=== PATIENT | male | born 1955 | race Caucasian/White ===

== ENCOUNTER 2021-06-09 14:21 | Inpatient (IN) | payer MEDICARE, OTHER ==
[~2021-06-09] VITALS: Ht 175.3 cm; Wt 82.9 kg
[2021-06-09 15:54] LABS: Basophils # (auto) 0 10 ^3/uL (0-0.2); Basophils % (auto) 0.3 % (0.0-2.0); Eosinophils # (auto) 0 10 ^3/uL (0-0.8); Eosinophils % (auto) 0.1 % (0.0-7.0); Hematocrit 24.5 % (41.0-53.0); Hemoglobin 8.3 g/dL (13.5-17.5); Lymphocytes # (auto) 0.6 10 ^3/uL (0.4-5.4); Lymphocytes % (auto) 6.4 % (10.0-50.0); Mean Corpuscular Hemoglobin 29.8 pg (28.0-32.0); Mean Corpuscular Hgb Conc. 33.8 g/dL (32.0-36.0); Mean Corpuscular Volume 88.2 fL (80.0-100.0); Monocytes # (auto) 0.5 10 ^3/uL (0-1.3); Monocytes % (auto) 5.6 % (0.0-12.0); Neutrophils # (auto) 7.9 10 ^3/uL (1.6-8.6); Neutrophils % (auto) 87.6 % (37.0-80.0); Nucleated Red Blood Cells % 0.1 %; Red Blood Cells 2.77 10^6/uL (4.5-5.90); Red Cell Distribution Width 16.4 % (11.8-14.3)
[2021-06-09 16:07] LABS: INR 1.31 (0.9-1.15); Partial Thromboplastin Time 32.7 sec (23.6-33.0)
[2021-06-09 16:27] LABS: Albumin 2.6 g/dL (3.4-5.0); Calcium 8.1 mg/dL (8.5-10.1); Magnesium 2.9 mg/dL (1.6-2.6); Potassium 5.4 mmol/L (3.5-5.1)
[2021-06-09 16:36] LABS: BUN/Creatinine Ratio 22.4; Bilirubin, Total 1.3 mg/dL (0.2-1.0); Total Protein 6.3 g/dL (6.4-8.2)
[2021-06-09] MEDS ORDERED: CALCIUM GLUC 1,000mg/50ml-NS 50 ML IV ONE (20:30)
[2021-06-09] MEDS ORDERED: SODIUM BICARBONATE 8.4 % INJ 50ML VIAL IV ONE (20:30)
[2021-06-09] MEDS ORDERED: DEXTROSE (50%) 50ML SYRG IV PRN (23:00)
[2021-06-09] MEDS ORDERED: DOCUSATE SOD 100 MG CAP PO PRN (23:00)
[2021-06-09] MEDS ORDERED: ONDANSETRON HCL 4 MG/2 ML VIAL IV PRN (23:00)
[2021-06-09] MEDS ORDERED: HYDROcodone-ACET 5/325MG TAB PO PRN (23:00)
[2021-06-09] MEDS ORDERED: MORPHINE SULFATE 4 MG/ML SYR/VIAL IV PRN (23:00)
[2021-06-09] MEDS ORDERED: MORPHINE SULFATE INJECTION 2 MG/ML SYRG IV PRN (23:45)
[2021-06-10 03:56] VITALS: BP 147/74
[2021-06-10] MEDS: ACETAMINOPHEN 325 MG TAB PO PRN ×2 (04:59→15:09)
[2021-06-10 05:48] VITALS: BP 147/74
[2021-06-10] MEDS: NITROGLYCERIN 0.4 MG SL TAB SL PRN ×4 (06:30→22:24)
[2021-06-10] MEDS: SODIUM CHLOR 0.9% PF (SALINE LOCK) 10ML VIAL/SYR IV SCH ×3 (07:07→23:09)
[2021-06-10] MEDS: InsuLIN REG 1unit/0.01ml Soln (100units/ml) SC SCH ×4 (07:08→23:07)
[2021-06-10] MEDS: ACCU-CHEK COMFORT CURVE STRIP VI SCH ×4 (07:09→23:10)
[2021-06-10 08:04] LABS: Basophils # (auto) 0 10 ^3/uL (0-0.2); Basophils % (auto) 0.6 % (0.0-2.0); Eosinophils # (auto) 0 10 ^3/uL (0-0.8); Eosinophils % (auto) 0.5 % (0.0-7.0); Hematocrit 24.8 % (41.0-53.0); Hemoglobin 8.3 g/dL (13.5-17.5); Lymphocytes % (auto) 12.6 % (10.0-50.0); Mean Corpuscular Hemoglobin 29.7 pg (28.0-32.0); Mean Corpuscular Hgb Conc. 33.7 g/dL (32.0-36.0); Mean Corpuscular Volume 88.1 fL (80.0-100.0); Monocytes # (auto) 0.6 10 ^3/uL (0-1.3); Monocytes % (auto) 7.5 % (0.0-12.0); Neutrophils # (auto) 6.2 10 ^3/uL (1.6-8.6); Neutrophils % (auto) 78.8 % (37.0-80.0); Red Blood Cells 2.81 10^6/uL (4.5-5.90); Red Cell Distribution Width 16.3 % (11.8-14.3); White Blood Cell 7.8 10^3/uL (4.4-10.8)
[2021-06-10 08:20] LABS: Albumin 2.5 g/dL (3.4-5.0); Calcium 8.3 mg/dL (8.5-10.1); Potassium 4.6 mmol/L (3.5-5.1)
[2021-06-10 08:40] LABS: Bilirubin, Total 0.6 mg/dL (0.2-1.0); Total Protein 6.3 g/dL (6.4-8.2)
[2021-06-10] MEDS: FAMOTIDINE (10MG/ML) 2ML VL IV SCH ×2 (08:54→23:07)
[2021-06-10] MEDS: ASPirin 81 mg TAB PO SCH (08:55)
[2021-06-10] MEDS: HEPARIN SODIUM (PORCINE) 5000 UNITS/ML 1ML VIAL SC SCH ×2 (08:55→23:09)
[2021-06-10 09:04] VITALS: BP 143/67
[2021-06-10] MEDS ORDERED: FUROSEMIDE 20 MG/2 ML VIAL IV SCH (10:00)
[2021-06-10] MEDS ORDERED: cefTRIAXone 1GM/50ML D5W 50 ML IV ONE (11:15)
[2021-06-10 11:28] LABS: Urine Bacteria NONE SEEN /hpf (None Seen); Urine Blood Negative /uL (Negative); Urine Specific Gravity 1.009 (1.001-1.035); Urine WBC <1 /hpf (0 - 3)
[2021-06-10] MEDS ORDERED: AZITHROMYCIN 500MG/ 250ML 250 ML IV ONE (12:30)
[2021-06-10 12:32] VITALS: BP 147/69
[2021-06-10 17:18] VITALS: BP 133/74
[2021-06-10 21:30] VITALS: BP 130/56
[2021-06-10] MEDS: CARVEDILOL 3.125 MG TAB PO SCH (22:00)
[2021-06-11] MEDS: ALBUTEROL SULF 2.5 MG/0.5ML(0.5%) NEB SOLN NEB PRN ×2 (04:49→14:04)
[2021-06-11 05:00] VITALS: BP 146/83
[2021-06-11] MEDS: SODIUM CHLOR 0.9% PF (SALINE LOCK) 10ML VIAL/SYR IV SCH ×3 (06:00→22:19)
[2021-06-11] MEDS: ACCU-CHEK COMFORT CURVE STRIP VI SCH ×4 (06:47→22:41)
[2021-06-11] MEDS: InsuLIN REG 1unit/0.01ml Soln (100units/ml) SC SCH ×4 (06:49→22:29)
[2021-06-11 06:51] LABS: Potassium 4.3 mmol/L (3.5-5.1)
[2021-06-11 06:56] LABS: BUN/Creatinine Ratio 22.8; Calcium 8.3 mg/dL (8.5-10.1)
[2021-06-11 07:19] LABS: Albumin 2.7 g/dL (3.4-5.0); Bilirubin, Direct 0.4 mg/dL (0-0.2); Total Protein 6.1 g/dL (6.4-8.2)
[2021-06-11 09:00] VITALS: BP 158/74
[2021-06-11] MEDS: cefTRIAXone 1GM/50ML D5W 50 ML IV SCH (10:16)
[2021-06-11] MEDS: FUROSEMIDE 40 MG/4 ML VIAL IV SCH (10:17)
[2021-06-11] MEDS: FAMOTIDINE (10MG/ML) 2ML VL IV SCH ×2 (10:17→22:18)
[2021-06-11] MEDS: AZITHROMYCIN 500MG/ 250ML 250 ML IV SCH (10:17)
[2021-06-11] MEDS: ASPirin 81 mg TAB PO SCH (10:18)
[2021-06-11] MEDS: CARVEDILOL 3.125 MG TAB PO SCH ×2 (10:18→22:20)
[2021-06-11] MEDS: HEPARIN SODIUM (PORCINE) 5000 UNITS/ML 1ML VIAL SC SCH ×2 (10:19→22:40)
[2021-06-11 13:00] VITALS: BP 145/74
[2021-06-11 17:00] VITALS: BP 136/67
[2021-06-11 22:00] VITALS: BP 162/80
[2021-06-12 05:00] VITALS: BP 159/88
[2021-06-12 05:34] LABS: Albumin 3.1 g/dL (3.4-5.0); BUN/Creatinine Ratio 15.1; Bilirubin, Direct 0.5 mg/dL (0-0.2); Calcium 9.3 mg/dL (8.5-10.1); Potassium 4.1 mmol/L (3.5-5.1)
[2021-06-12 05:42] LABS: Bilirubin, Total 1.2 mg/dL (0.2-1.0); Total Protein 7.1 g/dL (6.4-8.2)
[2021-06-12] MEDS: SODIUM CHLOR 0.9% PF (SALINE LOCK) 10ML VIAL/SYR IV SCH ×3 (06:07→22:21)
[2021-06-12] MEDS: InsuLIN REG 1unit/0.01ml Soln (100units/ml) SC SCH ×4 (06:37→22:31)
[2021-06-12 07:10] LABS: Albumin 2.7 g/dL (3.4-5.0); Bilirubin, Direct 0.4 mg/dL (0-0.2); Calcium 8.5 mg/dL (8.5-10.1); Potassium 4.3 mmol/L (3.5-5.1)
[2021-06-12] MEDS: ACCU-CHEK COMFORT CURVE STRIP VI SCH ×4 (07:15→22:30)
[2021-06-12 07:18] LABS: BUN/Creatinine Ratio 17.6; Bilirubin, Total 1.1 mg/dL (0.2-1.0); Total Protein 6.7 g/dL (6.4-8.2)
[2021-06-12 09:00] VITALS: BP 142/67
[2021-06-12] MEDS: ASPirin 81 mg TAB PO SCH (09:06)
[2021-06-12] MEDS: AZITHROMYCIN 500MG/ 250ML 250 ML IV SCH (09:07)
[2021-06-12] MEDS: FAMOTIDINE (10MG/ML) 2ML VL IV SCH (09:07)
[2021-06-12] MEDS: CARVEDILOL 3.125 MG TAB PO SCH ×2 (09:07→22:23)
[2021-06-12] MEDS: cefTRIAXone 1GM/50ML D5W 50 ML IV SCH (09:08)
[2021-06-12] MEDS: FUROSEMIDE 40 MG/4 ML VIAL IV SCH (09:08)
[2021-06-12] MEDS: HEPARIN SODIUM (PORCINE) 5000 UNITS/ML 1ML VIAL SC SCH ×2 (09:16→22:27)
[2021-06-12 13:00] VITALS: BP 120/51
[2021-06-12 17:11] VITALS: BP 144/66
[2021-06-12 22:00] VITALS: BP 131/74
[2021-06-13 05:00] VITALS: BP 150/80
[2021-06-13] MEDS: SODIUM CHLOR 0.9% PF (SALINE LOCK) 10ML VIAL/SYR IV SCH ×3 (05:54→22:39)
[2021-06-13] MEDS: FUROSEMIDE 40 MG/4 ML VIAL IV SCH (05:55)
[2021-06-13] MEDS: InsuLIN REG 1unit/0.01ml Soln (100units/ml) SC SCH ×4 (06:58→22:41)
[2021-06-13 07:07] LABS: Albumin 2.8 g/dL (3.4-5.0); Bilirubin, Direct 0.5 mg/dL (0-0.2)
[2021-06-13 07:15] LABS: Bilirubin, Total 1.3 mg/dL (0.2-1.0); Total Protein 6.4 g/dL (6.4-8.2)
[2021-06-13] MEDS: ACCU-CHEK COMFORT CURVE STRIP VI SCH ×4 (07:29→22:43)
[2021-06-13] MEDS: AZITHROMYCIN 500MG/ 250ML 250 ML IV SCH (08:20)
[2021-06-13 08:35] VITALS: BP 155/74
[2021-06-13] MEDS: HEPARIN SODIUM (PORCINE) 5000 UNITS/ML 1ML VIAL SC SCH ×2 (08:52→22:41)
[2021-06-13] MEDS: CARVEDILOL 3.125 MG TAB PO SCH ×2 (09:10→22:38)
[2021-06-13] MEDS: ASPirin 81 mg TAB PO SCH (09:10)
[2021-06-13] MEDS: PANTOPRAZOLE 40 MG TAB PO SCH (09:10)
[2021-06-13] MEDS: cefTRIAXone 1GM/50ML D5W 50 ML IV SCH (09:11)
[2021-06-13 10:01] LABS: INR 1.17 (0.9-1.15); Partial Thromboplastin Time 28.2 sec (23.6-33.0)
[2021-06-13 13:00] VITALS: BP 153/70
[2021-06-13 16:46] VITALS: BP 124/51
[2021-06-13 21:45] VITALS: BP 164/80
[2021-06-14 05:00] VITALS: BP 159/78
[2021-06-14 06:00] LABS: Albumin 2.8 g/dL (3.4-5.0)
[2021-06-14 06:04] LABS: Bilirubin, Direct 0.4 mg/dL (0-0.2); Total Protein 6.4 g/dL (6.4-8.2)
[2021-06-14] MEDS: InsuLIN REG 1unit/0.01ml Soln (100units/ml) SC SCH ×4 (07:17→21:42)
[2021-06-14] MEDS: ACCU-CHEK COMFORT CURVE STRIP VI SCH ×4 (07:18→21:42)
[2021-06-14] MEDS: SODIUM CHLOR 0.9% PF (SALINE LOCK) 10ML VIAL/SYR IV SCH ×3 (07:18→21:27)
[2021-06-14] MEDS ORDERED: NITROGLYCERIN 5MG/ML 10ML VIAL IV ONE (07:59)
[2021-06-14 09:00] VITALS: BP 143/80
[2021-06-14] MEDS: cefTRIAXone 1GM/50ML D5W 50 ML IV SCH (09:00)
[2021-06-14] MEDS: FUROSEMIDE 40 MG/4 ML VIAL IV SCH (09:33)
[2021-06-14] MEDS: ASPirin 81 mg TAB PO SCH (09:34)
[2021-06-14] MEDS: PANTOPRAZOLE 40 MG TAB PO SCH (09:34)
[2021-06-14] MEDS: HEPARIN SODIUM (PORCINE) 5000 UNITS/ML 1ML VIAL SC SCH (09:35)
[2021-06-14] MEDS: CARVEDILOL 3.125 MG TAB PO SCH ×2 (09:35→21:27)
[2021-06-14] MEDS: AZITHROMYCIN 500MG/ 250ML 250 ML IV SCH (09:35)
[2021-06-14 13:03] VITALS: BP 152/66
[2021-06-14] MEDS ORDERED: IODIXANOL 320MG/ML 100ML BTL IV ONE (14:09)
[2021-06-14] MEDS ORDERED: LIDOCAINE 2%HCL (LOCAL ANESTH.) INJ 20ML MDV ONE (14:09)
[2021-06-14] MEDS ORDERED: SODIUM CHL 0.9% 0 ML ONE (14:10)
[2021-06-14] MEDS ORDERED: ANGIOMAX 250 MG VIAL IV ONE (14:10)
[2021-06-14] MEDS ORDERED: fentaNYL CITRATE 100 MCG/2 ML VL ONE (14:10)
[2021-06-14] MEDS ORDERED: MIDAZOLAM HCL 2MG/2ML 2ml VIAL (1mg/ml) ONE (14:10)
[2021-06-14] MEDS ORDERED: IOHEXOL 350 MG/ML 100ML IJ ONE (14:52)
[2021-06-14 17:00] VITALS: BP 162/81
[2021-06-14 20:00] VITALS: BP 114/66
[2021-06-14 22:00] VITALS: BP 114/66
[2021-06-15 05:00] VITALS: BP 150/74
[2021-06-15] MEDS: SODIUM CHLOR 0.9% PF (SALINE LOCK) 10ML VIAL/SYR IV SCH ×2 (05:57→11:32)
[2021-06-15] MEDS: ACCU-CHEK COMFORT CURVE STRIP VI SCH ×2 (05:57→11:23)
[2021-06-15] MEDS: InsuLIN REG 1unit/0.01ml Soln (100units/ml) SC SCH ×2 (05:58→11:31)
[2021-06-15 06:17] LABS: Albumin 2.9 g/dL (3.4-5.0)
[2021-06-15 06:21] LABS: Bilirubin, Direct 0.4 mg/dL (0-0.2); Bilirubin, Total 0.8 mg/dL (0.2-1.0); Total Protein 6.5 g/dL (6.4-8.2)
[2021-06-15 08:00] VITALS: BP 148/74
[2021-06-15] MEDS: AZITHROMYCIN 500MG/ 250ML 250 ML IV SCH (08:55)
[2021-06-15] MEDS: ASPirin 81 mg TAB PO SCH (08:56)
[2021-06-15] MEDS: PANTOPRAZOLE 40 MG TAB PO SCH (08:56)
[2021-06-15] MEDS: cefTRIAXone 1GM/50ML D5W 50 ML IV SCH (08:56)
[2021-06-15] MEDS: CARVEDILOL 3.125 MG TAB PO SCH (08:57)
[2021-06-15] MEDS: FUROSEMIDE 40 MG/4 ML VIAL IV SCH (08:57)
[2021-06-15] MEDS ORDERED: ALBUAER3 IN (10:45)
[2021-06-15] MEDS ORDERED: AZIT500T66 PO (10:45)
[2021-06-15] MEDS ORDERED: CLOP75TA28 PO (10:45)
[2021-06-15 11:53] VITALS: BP 110/73
== END 2021-06-15 15:00 | disposition home or self-care (01) | DRG 280 ==
LOC: EDBD 14:21 → ER 14:21 → TELE 23:41 → TELE-WESTW 06-10 02:42
PROVIDERS: ADMIT Nurse Practitioner Family; ATTEND Family Medicine
PROC: 4A023N7 Measurement of Cardiac Sampling and Pressure, Left Heart, Percutaneous Approach (ICD-10-PCS; principal; 2021-06-14)
PROC: B2111ZZ Fluoroscopy of Multiple Coronary Arteries using Low Osmolar Contrast (ICD-10-PCS; 2021-06-14)
PROC: B2151ZZ Fluoroscopy of Left Heart using Low Osmolar Contrast (ICD-10-PCS; 2021-06-14)
PROC: B2131ZZ Fluoroscopy of Multiple Coronary Artery Bypass Grafts using Low Osmolar Contrast (ICD-10-PCS; 2021-06-14)
PROC: B2181ZZ Fluoroscopy of Left Internal Mammary Bypass Graft using Low Osmolar Contrast (ICD-10-PCS; 2021-06-14)
PROC: B3101ZZ Fluoroscopy of Thoracic Aorta using Low Osmolar Contrast (ICD-10-PCS; 2021-06-14)
DX: I21.4 Non-ST elevation (NSTEMI) myocardial infarction (principal); J18.9 Pneumonia, unspecified organism; N17.0 Acute kidney failure with tubular necrosis; N18.6 End stage renal disease; J44.0 Chronic obstructive pulmonary disease with (acute) lower respiratory infection; I13.2 Hypertensive heart and chronic kidney disease with heart failure and with stage 5 chronic kidney disease, or end stage renal disease; J44.1 Chronic obstructive pulmonary disease with (acute) exacerbation; I25.10 Atherosclerotic heart disease of native coronary artery without angina pectoris; D64.9 Anemia, unspecified; E87.5 Hyperkalemia; E11.22 Type 2 diabetes mellitus with diabetic chronic kidney disease; E11.65 Type 2 diabetes mellitus with hyperglycemia; E78.5 Hyperlipidemia, unspecified; R74.01 Elevation of levels of liver transaminase levels; R79.89 Other specified abnormal findings of blood chemistry; E78.00 Pure hypercholesterolemia, unspecified; E88.09 Other disorders of plasma-protein metabolism, not elsewhere classified; I50.9 Heart failure, unspecified; Z20.822 Contact with and (suspected) exposure to COVID-19; Z53.29 Procedure and treatment not carried out because of patient's decision for other reasons; Z79.899 Other long term (current) drug therapy; Z82.49 Family history of ischemic heart disease and other diseases of the circulatory system; Z83.3 Family history of diabetes mellitus; Z87.891 Personal history of nicotine dependence; Z95.1 Presence of aortocoronary bypass graft; I25.2 Old myocardial infarction; Z98.61 Coronary angioplasty status; Z71.6 Tobacco abuse counseling
CPT/HCPCS: 36415; 71045; 76705; 78582; 80048; 80053; 80076; 81001; 82570; 82962; 83036; 83605; 83735; 83880; 84156; 84484; 85025; 85379; 85610; 85730; 87040; 87081; 87426; 93005; 93306; 93459; 93567; 93970; 94640; 96365; 96375; 99152; G0378; J0696; J1815; J2250; J3490; Q9967